=== PATIENT | male | born 2000 | race Two or more races ===

== ENCOUNTER 2019-01-05 22:35 | Emergency (ER) | payer BC ==
--- NOTE | 2019-01-05 22:51 | EDPHY ---
H & P Stated Complaint: fell on rocks chin lac and ear ringing Time Seen by Provider: 01/05/19 22:41 HPI/ROS: CHIEF COMPLAINT: Chin laceration, mandible pain post mechanical fall HISTORY OF PRESENT ILLNESS: 18-year-old male via private vehicle complaining of chin laceration bilateral TMJ and mandible pain after he was running this evening, sustained a mechanical fall on gravel, impacted his chin 1st. No headache. No nausea or vomiting. No midline C-spine pain. No peripheral paresthesia, weakness, numbness, intraoral bleeding, dental fracture. REVIEW OF SYSTEMS: 10 systems reviewed and negative with the exception of the elements mentioned in the history of present illness PAST MEDICAL/SURGICAL HISTORY: no anticoagulant use, no relevant medical/ surgical history SOCIAL HISTORY: denies alcohol use at time of incident PHYSICAL EXAM 1) GENERAL: Well-developed, well-nourished, alert and oriented. Appears to be in no acute distress. Answering questions appropriately. 2) HEAD: Normocephalic, atraumatic 3) HEENT: Pupils equal, round, reactive to light bilaterally. Negative Horners. Nasopharynx, oropharynx, clear. No deformity or angulation of nose. No septal hematoma. No rhinorrhea. No oral trauma. Chin laceration measuring 3 cm. Tender to palpation bilateral TMJ Ears bilaterally with normal tympanic membranes. No hemotympanum. No fluid or blood in the external auditory canal. No raccoon eyes. No Landrum sign. Teeth are normally aligned with no gross malocclusion, TMJ bilaterally nontender, facial bones nontender including the zygomatic arch, maxilla mandible. 4) NECK: No cervical collar is on. Posterior cervical spine is nontender, no stepoff, no effusion. Full range of motion which does not elicit any midline cervical spine pain, no posterior midline tenderness, no step-off. 5) LUNGS: Clear to auscultation bilaterally, no wheezes, no rhonchi, no retractions. No obvious signs of trauma. No chest wall pain. No flaring, no grunting. Moving symmetrically. No crepitus. 6) HEART: [Regular rate and rhythm, 7) ABDOMEN: No guarding, no rebound, no focal tenderness, no peritoneal signs, no signs of trauma, no ecchymosis 8) MUSCULOSKELETAL: Moving all extremities, no focal areas of tenderness, no obvious trauma. 9) BACK: No midline vertebral tenderness, no fluctuance, no step-off, no obvious trauma, no visual or palpable abnormality. 10) SKIN: No abrasion DIFFERENTIAL DIAGNOSIS: In no particular order including but not limited to laceration, mandible fracture, mandible dislocation - Personal History Current Tetanus/Diphtheria Vaccine: Yes Current Tetanus Diphtheria and Acellular Pertussis (TDAP): Yes - Medical/Surgical History Hx Asthma: No Hx Chronic Respiratory Disease: No Hx Diabetes: No Hx Cardiac Disease: No Hx Renal Disease: No Hx Cirrhosis: No Hx Alcoholism: No Hx HIV/AIDS: No Hx Splenectomy or Spleen Trauma: No Other PMH: denies - Social History Smoking Status: Current some day smoker Constitutional: Initial Vital Signs Temperature (C) 36.6 C 01/05/19 22:38 Heart Rate 115 H 01/05/19 22:38 Respiratory Rate 16 01/05/19 22:38 Blood Pressure 148/93 H 01/05/19 22:38 O2 Sat (%) 97 01/05/19 22:38 O2 Delivery Mode Room Air Allergies/Adverse Reactions: amoxicillin Allergy (Verified 01/05/19 22:40) Home Medications: Medication Instructions Recorded Clindamycin 150 mg PO Q8 7 Days cap 01/06/19 Medical Decision Making Procedures: Procedure: Laceration repair. I explained the indications, risks and benefits for both laceration repair and anesthetic administration. Verbal consent was obtained from the patient. The laceration on the chin was anesthetized using 0.5% bupivicaine with epinephrine. After anesthetic administered the patient was observed for a period of time and had no apparent adverse effects. The wound was cleaned, prepped, draped in normal sterile fashion and explored to its base. No foreign body seen, no foreign bodies palpated. There were no deep structures involved. Skin margins were revised to allow for better closure. The wound was repaired with 8 simple interrupted 6 0 Prolene sutures . The wound repair was complex. The procedure was performed by myself. Patient has been informed that scarring will occur, although efforts have been made to minimize this. ED Course/Re-evaluation: 1130 pm: CT imaging of the face interpreted by Teleradiology service shows, "nondisplaced acute fracture of the anterior right mandibular body extending across the roots of the right mandibular incisors with overlying laceration. Possible acute nondisplaced fracture involving the posterior wall the left mandibular fossa in the anterior wall of left external auditory canal." 11:39 p.m.: Consultation Dr. Wilber Escobar oral surgery recommends starting the patient on amoxicillin, soft diet, call the office in the morning to be followed up. Patient is penicillin allergic and will be started on clindamycin. 11:43 p.m.: Patient was re-evaluated. I re-examined the patient's bilateral ears which shows no evidence of tissue disruption of the external auditory canal , no bleeding, no laceration, no hemotympanum, no otorrhea .. I explained to the patient his imaging results. His friends are with him in the room no witnesses conversation. I stressed the importance of close follow-up. He has been given referral information to Dr. Wilber Escobar in prescription for antibiotic. 1st dose of antibiotics given in the ER. Care of patient under supervision of secondary supervising physician Dr Ram with whom I discussed case. - Data Points Medications Given: Discontinued Medications Clindamycin (Clindamycin) 150 mg PO EDNOW ONE PRN Reason: Protocol Stop: 01/05/19 23:48 Last Admin: 01/05/19 23:54 Dose: 150 mg Departure - Departure Disposition: Home, Routine, Self-Care Clinical Impression: Activity, running Chin laceration Qualifiers: Encounter type: initial encounter Qualified Code(s): S01.81XA - Laceration without foreign body of other part of head, initial encounter Mandible open fracture Qualifiers: Encounter type: initial encounter Mandible location: body Laterality: right Qualified Code(s): S02.601B - Fracture of unspecified part of body of right mandible, initial encounter for open fracture Condition: Good Instructions: Clindamycin (By mouth), Hydrocodone/Acetaminophen (By mouth), Laceration (ED), Jaw Fracture in Adults (ED) Additional Instructions: Eat a soft liquid diet. Do not open your mouth wide. Call the oral surgeon's office in the morning. Referrals: Return, to the ER in 5 days for suture removal [Other] - As per Instructions Wilber Escobar DDS [Doctor of Dental Surgery] - 1 day without fail (In the morning call Dr. Escobar's office) Stand Alone Forms: School Excuse Prescriptions: Clindamycin 150 mg PO Q8 7 Days cap
[2019-01-05] MEDS ORDERED: CLINDAMYCIN 150 MG CAP PO ONE (23:47)
[2019-01-06] MEDS ORDERED: CLINDAMYCIN 150MG PREPACK#6 BTL TAKEHOME ONE (00:05)
[2019-01-06] MEDS ORDERED: HYDROCOD/APAP 5/325 PREPACK#6 BTL TAKEHOME ONE (00:05)
[2019-01-13 10:02] VITALS: BP 116/63
== END 2019-01-06 00:16 | disposition home or self-care (01) ==
PROC: 0HQ1XZZ Repair Face Skin, External Approach (ICD-10-PCS; principal; 2019-01-05)
DX: S01.81XA Laceration without foreign body of other part of head, initial encounter (principal); S02.601B Fracture of unspecified part of body of right mandible, initial encounter for open fracture; W01.0XXA Fall on same level from slipping, tripping and stumbling without subsequent striking against object, initial encounter; Y93.02 Activity, running

== ENCOUNTER 2019-01-13 10:26 | Emergency (ER) | payer BC ==
[2019-01-13 10:30] VITALS: BP 123/72
--- NOTE | 2019-01-13 10:35 | EDPHY ---
H & P Stated Complaint: jaw pain Time Seen by Provider: 01/13/19 10:35 HPI/ROS: CHIEF COMPLAINT: Requesting pain medication HISTORY OF PRESENT ILLNESS: The patient presents the emergency department requesting pain medication. He was seen in the emergency department on January 05 and diagnosed with a nondisplaced jaw fracture. The patient has followed up with oral surgery and informed that this is nonsurgical. The patient has been taking ibuprofen without significant relief of his symptoms. He is scheduled to travel back to [place] and seek a 2nd opinion at an oral surgeon in his hometown. The patient denies any acute complaints aside from unmanaged pain. REVIEW OF SYSTEMS: A comprehensive 10 point review of systems is otherwise negative aside from elements mentioned in the history of present illness. Source: Patient Exam Limitations: No limitations - Personal History Current Tetanus/Diphtheria Vaccine: Yes Current Tetanus Diphtheria and Acellular Pertussis (TDAP): Yes - Medical/Surgical History Hx Asthma: No Hx Chronic Respiratory Disease: No Hx Diabetes: No Hx Cardiac Disease: No Hx Renal Disease: No Hx Cirrhosis: No Hx Alcoholism: No Hx HIV/AIDS: No Hx Splenectomy or Spleen Trauma: No Other PMH: denies - Social History Smoking Status: Former smoker - Physical Exam Exam: General Appearance: Alert, no distress Head: Atraumatic Eyes: Pupils equal, round, reactive ENT, Mouth: Tenderness to palpation along the mandible consistent with the patient's known injuries Neck: Nontender, trachea midline Respiratory: No chest wall tender, no subcutaneous air, lungs clear bilaterally Cardiovascular: Regular rate and rhythm Abdomen: Abdomen is soft and nontender, pelvis stable Skin: No lacerations, No abrasion Back: No midline T/L/S pain Extremities: Nontender, full range of motion Neurological: A&Ox3, normal motor function, normal sensory exam Constitutional: Initial Vital Signs Temperature (C) 36.8 C 01/13/19 10:29 Heart Rate 57 L 01/13/19 10:29 Respiratory Rate 16 01/13/19 10:29 Blood Pressure 123/72 H 01/13/19 10:29 O2 Sat (%) 97 01/13/19 10:29 O2 Delivery Mode Room Air Allergies/Adverse Reactions: amoxicillin Allergy (Verified 01/05/19 22:40) clindamycin Allergy (Verified 01/13/19 10:29) Home Medications: Medication Instructions Recorded Hydrocodone/APAP 5/325 [Sun 1 - 2 each PO Q6 PRN #20 tab 01/13/19 5/325] Medical Decision Making ED Course/Re-evaluation: I reviewed the patient's facial CT obtained on January 05. The patient is well- hydrated. The patient has been provided an additional prescription for narcotic pain medication. Departure - Departure Disposition: Home, Routine, Self-Care Clinical Impression: Jaw fracture Condition: Good Instructions: Jaw Fracture in Adults (ED) Additional Instructions: 1. Take Ibuprofen or Motrin 600 mg by mouth three times a day. 2. Sun as needed for pain. Prescriptions: Hydrocodone/APAP 5/325 [Sun 5/325] 1 - 2 each PO Q6 PRN #20 tab PRN Reason: for pain
== END 2019-01-13 10:55 | disposition home or self-care (01) ==
DX: Z76.0 Encounter for issue of repeat prescription (principal); S02.609D Fracture of mandible, unspecified, subsequent encounter for fracture with routine healing; Z87.891 Personal history of nicotine dependence